=== PATIENT | female | born 1955 | race Caucasian/White ===

== ENCOUNTER 2020-10-15 11:47 | Day surgery (SDC) | payer BC ==
[~2020-10-15] VITALS: Ht 152.4 cm; Wt 77.2 kg
[~2020-10-15 11:47] MED LIST: ALORA1 EA10 TOP; BENADRYL25 MG PO; BICARSIM FORTE125 MG PO; CALCIT950; CHOL10002; CYCL10 PO; Calcium Acetat667 MG PO; DHEA 10 MG TAB1 EACH PO; DOCU100 PO; Dyazide 37.5-21 EACH PO; ESTRTP VAG; Evening Primro500 M1 PO; FAMO20 PO; FAMO40 PO; FISH OIL 1,2001 EAC7 PO; Fish Oil Conc1 EACH PO; Flonase 0.05% N16 GM; IBUP200 PO; IBUPROFEN200 MG PO; L-LYSINE500 MG PO; LEVSOD75 PO; LIVER COMPLEX PO; Lovastatin20 MG PO; METO50ER PO; MOMENI; MULVITA; Milk Thistle500 MG PO; Multiple Vitam1 EAC1 PO; PSEU120ER PO; SUDAFED PE PRE1 EAC2; TESTOSTERONE CREAM TOP; VITAMIN D325 MC3 PO; [UNRECOGNIZED DRUG - OTHER] PO; [UNRECOGNIZED DRUG - OTHER] PO
--- NOTE | 2020-10-15 12:50 | NUR ---
10/15/20 1250 Bola Mendiola CALL LIGHT WITHIN REACH
== END 2020-10-15 14:30 | disposition home or self-care (01) ==
LOC: ORSCSDS 11:47
PROVIDERS: Surgery
PROC: 0DBN8ZX Excision of Sigmoid Colon, Via Natural or Artificial Opening Endoscopic, Diagnostic (ICD-10-PCS; principal; 2020-10-15 13:30)
PROC: 0DBK8ZX Excision of Ascending Colon, Via Natural or Artificial Opening Endoscopic, Diagnostic (ICD-10-PCS; principal; 2020-10-15 13:30)
DX: Z12.11 Encounter for screening for malignant neoplasm of colon (principal); Z86.010 Personal history of colon polyps; D12.8 Benign neoplasm of rectum; D12.2 Benign neoplasm of ascending colon; K21.9 Gastro-esophageal reflux disease without esophagitis; I10 Essential (primary) hypertension; I26.99 Other pulmonary embolism without acute cor pulmonale; E66.9 Obesity, unspecified; Z68.34 Body mass index [BMI] 34.0-34.9, adult; Z79.899 Other long term (current) drug therapy
CPT/HCPCS: 88305; J2704; J7120

== ENCOUNTER → 2022-04-21 | Outpatient (CLI) | payer OTHER | END | disposition home or self-care (01) | LOC: LAB 15:26 → LAB SHORT 15:26 | DX: L01.01 Non-bullous impetigo (principal); L81.4 Other melanin hyperpigmentation; D22.5 Melanocytic nevi of trunk; B37.2 Candidiasis of skin and nail; Z86.006 Personal history of melanoma in-situ | CPT/HCPCS: 87070; 87205 ==